=== PATIENT | male | born 1985 | race Caucasian/White ===

== ENCOUNTER 2016-10-03 12:06 | Emergency (ER) | payer OTHER ==
[2016-10-03 12:11] VITALS: BP 137/90; PULSE 102; RESP 18; TEMP 97.8; O2SAT 98
[2016-10-03] MEDS ORDERED: cefTRIAXone (Rocephin) 250 mg Inj IM STA (12:40)
--- NOTE | 2016-10-03 12:40 | C.PDOC ---
History Of Present Illness 31 yr old male presents to the ER for evaluation of new onset of rash, burning and itchy sensation to the penile and scrotal area for the past 2 days. Patient denies fever, vomiting, abdominal pain, diarrhea, penile discharge, swelling, weakness or numbness. Time Seen by Provider: 10/03/16 12:22 Chief Complaint (Nursing): Abnormal Skin Integrity History Per: Patient History/Exam Limitations: no limitations Onset/Duration Of Symptoms: Sudden Onset (For 2 days. ) Past Medical History Reviewed: Historical Data, Nursing Documentation, Vital Signs Vital Signs: Last Vital Signs Temp 97.8 F 10/03/16 12:11 Pulse 102 H 10/03/16 12:11 Resp 18 10/03/16 12:11 BP 137/90 10/03/16 12:11 Pulse Ox 98 10/03/16 12:40 Family History: States: No Known Family Hx - Social History Hx Tobacco Use: No Hx Alcohol Use: No Hx Substance Use: No - Immunization History Hx Tetanus Toxoid Vaccination: No Hx Influenza Vaccination: No Hx Pneumococcal Vaccination: No Review Of Systems Except As Marked, All Systems Reviewed And Found Negative. Constitutional: Negative for: Fever Gastrointestinal: Negative for: Vomiting, Abdominal Pain, Diarrhea Genitourinary: Positive for: Rash, Other (Rash, burning and itchy sensation to the penile and scrotal area. ). Negative for: Penile Discharge Neurological: Negative for: Weakness, Numbness Physical Exam - Physical Exam Appears: Well, Non-toxic, No Acute Distress Skin: Warm, Dry, No Rash Head: Atraumatic, Normacephalic Oral Mucosa: Moist Chest: Symmetrical, No Tenderness Gastrointestinal/Abdominal: Normal Exam, Soft, No Tenderness, No Guarding, No Rebound Male Genital: No Testicular Swelling, Other (Rash consistent with herpes. ) Extremity: Normal ROM, No Swelling Neurological/Psych: Oriented x3, Normal Speech, Normal Motor ED Course And Treatment O2 Sat by Pulse Oximetry: 98 Medical Decision Making Medical Decision Making: PLAN: * Rocephin IM Disposition Counseled Patient/Family Regarding: Diagnosis, Need For Followup, Rx Given - Disposition Referrals: [facility] [Outside] [facility] [Outside] Disposition: HOME/ ROUTINE Disposition Time: 12:38 Condition: GOOD Prescriptions: Naproxen 500 mg PO BID #30 tab Acetaminophen/Codeine [Tylenol/Codeine 300 MG/30 MG] 2 tab PO Q6H #20 tab Valacyclovir HCl [Valtrex] 1,000 mg PO BID #20 tablet Azithromycin [Zithromax] 2 tab PO ONCE #2 tab Instructions: Genital Herpes Simplex (ED) - Clinical Impression Clinical Impression: Genital herpes in men - Scribe Statement The provider has reviewed the documentation as recorded by the Thomas Reinoso Provider Attestation: All medical record entries made by the Thomas were at my direction and personally dictated by me. I have reviewed the chart and agree that the record accurately reflects my personal performance of the history, physical exam, medical decision making, and the department course for this patient. I have also personally directed, reviewed, and agree with the discharge instructions and disposition.
== END 2016-10-03 13:09 | disposition home or self-care (01) ==
LOC: C.ER 12:06
DX: A60.01 Herpesviral infection of penis (principal)
CPT/HCPCS: 96372; 99283; J0696

== ENCOUNTER 2016-12-25 08:31 | Inpatient (IN) | payer OTHER ==
[2016-12-25] MEDS ORDERED: Sodium Chloride 0.9% 1,000 ML IV ONE ×2 (08:54→10:50)
[2016-12-25] MEDS ORDERED: Sodium Chloride 0.9% 1,000 ML ONE ×2 (09:02→10:55)
[2016-12-25 09:06] LABS: BASO # 0.1 K/uL (0.0-0.2); BASO % 0.7 % (0.0-2.0); EOS % 0.3 % (0.0-4.0); HEMATOCRIT 45.9 % (35.0-51.0); LYMPH # 1.1 K/uL (1.0-4.3); LYMPH % 9.6 % (20.0-40.0); MEAN CELL VOLUME 84.7 fL (80.0-94.0); MEAN CORPUSCULAR HEMOGLOBIN 27.6 pg (27.0-31.0); MEAN CORPUSCULAR HGB CONC 32.6 g/dL (33.0-37.0); MEAN PLATELET VOLUME 8.8 fL (7.2-11.7); MONO # 0.7 K/uL (0.0-0.8); MONO % 5.7 % (0.0-10.0); NRBC % 0.1 % (0.0-2.0); PLATELET COUNT 225 K/uL (130-400); RED CELL DISTRIBUTION WIDTH 14.6 % (11.5-14.5); WHITE BLOOD COUNT 11.5 K/uL (4.8-10.8)
[2016-12-25 09:22] LABS: RBC URINE 1 /hpf (0-3); URINE BILIRUBIN NEGATIVE (NEGATIVE); URINE BLOOD NEGATIVE (NEGATIVE); URINE COLOR Yellow (YELLOW); URINE GLUCOSE (UA) NORMAL (Normal); URINE HYALINE CAST 0-2 /lpf (0-2); URINE KETONE NEGATIVE (NEGATIVE); URINE LEUKOCYTE ESTERASE NEG Leu/uL (Negative); URINE PROTEIN 1+ mg/dL (NEGATIVE); URINE UROBILINOGEN NORMAL mg/dL (0.2-1.0); WBC URINE 1 /hpf (0-5)
[2016-12-25 09:22] LABS: CHLORIDE 100 mmol/L (98-107); POTASSIUM 3.9 mmol/L (3.6-5.2); SODIUM 137 mmol/L (132-148)
[2016-12-25 09:24] LABS: ALB/GLOB RATIO 1.2 (1.0-2.1); ALKALINE PHOSPHATASE 74 U/L (38-126); AST/SGOT 38 U/L (17-59); BILIRUBIN,TOTAL 1.6 mg/dL (0.2-1.3); BLOOD UREA NITROGEN 11 mg/dL (9-20); CARBON DIOXIDE 22 mmol/L (22-30); GFR AFRICAN-AMERICAN > 60
[2016-12-25 09:25] LABS: ALT/SGPT 40 U/L (21-72); CALCIUM 9.7 mg/dl (8.6-10.4); GLUCOSE,RANDOM 115 mg/dL (75-110)
[2016-12-25 09:49] LABS: EOSINOPHIL 1 % (0-4); NEUTROPHIL 83 % (50-75); TOTAL CELLS COUNTED 100
[2016-12-25 09:50] LABS: LARGE PLATELETS PRESENT
--- NOTE | 2016-12-25 10:23 | C.PDOC ---
History Of Present Illness 31-year-old male, presents to the emergency department with complaints of abdominal pain. Patient states he has been experiencing diffuse abdominal pain that started this morning. Associated symptoms include nausea and non-bloody/non -bilious vomiting. Patient denies fevers or chills. Time Seen by Provider: 12/25/16 08:37 Chief Complaint (Nursing): Abdominal Pain History Per: Patient History/Exam Limitations: no limitations Onset/Duration Of Symptoms: Hrs Current Symptoms Are (Timing): Still Present Severity: Moderate Location Of Pain/Discomfort: Diffuse Past Medical History Reviewed: Historical Data, Nursing Documentation, Vital Signs Vital Signs: Last Vital Signs Temp 97.7 F 12/25/16 10:59 Pulse 63 12/25/16 13:09 Resp 18 12/25/16 13:09 BP 115/61 12/25/16 13:09 Pulse Ox 97 12/25/16 13:32 Family History: States: No Known Family Hx - Social History Hx Tobacco Use: No Hx Alcohol Use: No Hx Substance Use: No - Immunization History Hx Tetanus Toxoid Vaccination: (unk) Hx Influenza Vaccination: No Hx Pneumococcal Vaccination: (unk) Review Of Systems Except As Marked, All Systems Reviewed And Found Negative. Constitutional: Negative for: Fever, Chills Cardiovascular: Negative for: Chest Pain Respiratory: Negative for: Cough, Shortness of Breath Gastrointestinal: Positive for: Nausea, Vomiting, Abdominal Pain Neurological: Negative for: Weakness, Numbness, Headache, Dizziness Physical Exam - Physical Exam Appears: Non-toxic, No Acute Distress Skin: Warm, Dry, No Rash Oral Mucosa: Moist Lips: Normal Appearing Neck: Normal ROM Chest: Symmetrical Cardiovascular: Rhythm Regular, No Murmur Respiratory: Normal Breath Sounds, No Accessory Muscle Use Gastrointestinal/Abdominal: Soft, Tenderness (diffuse), No Guarding, No Rebound Extremity: Normal ROM Neurological/Psych: Oriented x3, Normal Speech ED Course And Treatment - Laboratory Results Result Diagrams: 12/25/16 09:01 12/25/16 09:01 Lab Interpretation: No Acute Changes O2 Sat by Pulse Oximetry: 97 Pulse Ox Interpretation: Normal - CT Scan/US No standard instances Other Rad Studies (CT/US): Read By Radiologist, Radiology Report Reviewed CT/US Interpretation: FINDINGS: LOWER THORAX: Unremarkable. LIVER: Unremarkable. No gross lesion or ductal dilatation. GALLBLADDER AND BILE DUCTS : Unremarkable. PANCREAS: Unremarkable. No gross lesion or ductal dilatation. SPLEEN: Unremarkable. ADRENALS: Unremarkable. No mass. KIDNEYS AND URETERS: Unremarkable. No hydronephrosis. No solid mass. VASCULATURE: Unremarkable. No aortic aneurysm. BOWEL: Dilated small bowel loops are identified, likely distal jejunum/ proximal ileum. There is transition point noted in the right hemipelvis (series 3, image 129 through 133. This is very similar to the small-bowel obstruction and transition point demonstrated on prior CT examination of 05/03/2015. Proximal small bowel and stomach are not dilated. There is complete collapse of the colon. There is no fecalization of small bowel content. There is no mural thickening. No other abnormal bowel loops are identified. Findings are consistent with early mechanical small bowel obstruction. Followup is advised. APPENDIX: Unremarkable. Normal appendix. PERITONEUM: Unremarkable. No free fluid. No free air. LYMPH NODES: Unremarkable. No enlarged lymph nodes. BLADDER: Decompressed. REPRODUCTIVE : Normal prostate. BONES: No acute fracture. OTHER FINDINGS: None. IMPRESSION: Findings consistent with early mechanical small bowel obstruction with point of transition identified in the pelvis. Follow-up advised. No other significant abnormality. Progress Note: Zofran, Toradol and IVFs ordered. Case discussed and patient evaluated by surgical pathologist who request admission to Dr Hannah Reassessment Condition: Improved - Physician Consult Information Physician Contacted: Damian Hannah Outcome Of Conversation: admit Disposition Discussed With .: Damian Hannah Doctor Will See Patient In The: Hospital - Disposition Disposition: HOSPITALIZED Disposition Time: 13:40 Condition: STABLE - POA Present On Arrival: None - Clinical Impression Clinical Impression: Vomiting, Nausea, Abdominal pain, Small bowel obstruction - PA / HEAD BONE GRINDER / Resident Statement MD/DO has reviewed & agrees with the documentation as recorded. - Scribe Statement The provider has reviewed the documentation as recorded by the Scribe (Miguel Parson) All medical record entries made by the Scribe were at my direction and personally dictated by me. I have reviewed the chart and agree that the record accurately reflects my personal performance of the history, physical exam, medical decision making, and the department course for this patient. I have also personally directed, reviewed, and agree with the discharge instructions and disposition. Decision To Admit - Pt Status Changed To: Hospital Disposition Of: Inpatient - Admit Certification Admit to Inpatient:: After my assessment, the patient will require hospitalization for at least two midnights. This is because of the severity of symptoms shown, intensity of services needed, and/or the medical risk in this patient being treated as an outpatient. - InPatient: Physician Admission Certification:: SBO - . Bed Request Type: Regular Admitting Physician: Damian Hannah Patient Diagnosis: Vomiting, Nausea, Abdominal pain, Small bowel obstruction
--- NOTE | 2016-12-25 10:41 | CT ---
PROCEDURE: CT Abdomen and Pelvis without intravenous contrast HISTORY: Pain COMPARISON: 05/03/2015 TECHNIQUE: Without contrast.. Contrast Dose: 0 Radiation dose: Total exam DLP = 259.53 mGy-cm. This CT exam was performed using one or more of the following dose reduction techniques: Automated exposure control, adjustment of the mA and/or kV according to patient size, and/or use of iterative reconstruction technique. FINDINGS: LOWER THORAX: Unremarkable. LIVER: Unremarkable. No gross lesion or ductal dilatation. GALLBLADDER AND BILE DUCTS: Unremarkable. PANCREAS: Unremarkable. No gross lesion or ductal dilatation. SPLEEN: Unremarkable. ADRENALS: Unremarkable. No mass. KIDNEYS AND URETERS: Unremarkable. No hydronephrosis. No solid mass. VASCULATURE: Unremarkable. No aortic aneurysm. BOWEL: Dilated small bowel loops are identified, likely distal jejunum/ proximal ileum. There is transition point noted in the right hemipelvis (series 3, image 129 through 133. This is very similar to the small-bowel obstruction and transition point demonstrated on prior CT examination of 05/03/2015. Proximal small bowel and stomach are not dilated. There is complete collapse of the colon. There is no fecalization of small bowel content. There is no mural thickening. No other abnormal bowel loops are identified. Findings are consistent with early mechanical small bowel obstruction. Followup is advised. APPENDIX: Unremarkable. Normal appendix. PERITONEUM: Unremarkable. No free fluid. No free air. LYMPH NODES: Unremarkable. No enlarged lymph nodes. BLADDER: Decompressed REPRODUCTIVE: Normal prostate BONES: No acute fracture. OTHER FINDINGS: None. IMPRESSION: Findings consistent with early mechanical small bowel obstruction with point of transition identified in the pelvis. Follow-up advised. No other significant abnormality.
--- NOTE | 2016-12-25 13:30 | CP.PCM.HP ---
<Eren Núñez - Last Filed: 12/25/16 13:38> History of Present Illness - History of Present Illness History of Present Illness: Surgery: Dr. Hannah CC: abd pain HPI: 31M w. hx of prior SBO in September, w. conservative tx, presents to ED w. acute onset abd pain. Pain began at 6AM and was diffuse and constant. Pain was accompanied by nausea and 2 epsiodes of vomiting, NBNB. Pt states that he had BM this morning that was normal, but since BM has not had any flatus. After arriving to ED, his pain completely resolved after having toradol. He is currently resting comfortably in bed w. no complaints. He states that he is hungry and would like to eat. CT done in ED showed signs of mechanical SBO. PMH: SBO PSH: none Meds: none NKDA Social: No ETOH/tobacco/drugs Fhx: non-contributory Present on Admission - Present on Admission Any Indicators Present on Admission: No Review of Systems - Review of Systems All systems: reviewed and no additional remarkable complaints except (HPI) Past Patient History - Infectious Disease Hx of Infectious Diseases: None - Past Social History Smoking Status: Never Smoked - PSYCHIATRIC Hx Substance Use: No - SURGICAL HISTORY Hx Surgeries: No - ANESTHESIA Hx Anesthesia: No Meds Allergies/Adverse Reactions: Allergies Allergy/AdvReac Type Severity Reaction Status Date / Time No Known Allergies Allergy Verified 12/25/16 08:44 Physical Exam - Constitutional Appears: Non-toxic, No Acute Distress - Head Exam Head Exam: ATRAUMATIC, NORMOCEPHALIC - Eye Exam Eye Exam: EOMI - ENT Exam ENT Exam: Mucous Membranes Moist, Normal External Ear Exam - Neck Exam Neck exam: Positive for: Full Rom - Respiratory Exam Respiratory Exam: NORMAL BREATHING PATTERN. absent: Accessory Muscle Use, Respiratory Distress - GI/Abdominal Exam GI & Abdominal Exam: Soft. absent: Distended, Firm, Guarding, Rebound, Rigid, Tenderness - Extremities Exam Extremities exam: Negative for: calf tenderness, pedal edema - Neurological Exam Neurological exam: Alert, Oriented x3 Results - Vital Signs Recent Vital Signs: Last Vital Signs Temp 97.7 F 12/25/16 10:59 Pulse 63 12/25/16 13:09 Resp 18 12/25/16 13:09 BP 115/61 12/25/16 13:09 Pulse Ox 98 12/25/16 13:09 - Labs Result Diagrams: 12/25/16 09:01 12/25/16 09:01 Labs: Laboratory Results - last 24 hr 12/25/16 12/25/16 12/25/16 09:01 09:01 09:12 WBC 11.5 H RBC 5.42 Hgb 14.9 Hct 45.9 MCV 84.7 D MCH 27.6 MCHC 32.6 L RDW 14.6 H Plt Count 225 MPV 8.8 Neut % (Auto) 83.7 H Lymph % (Auto) 9.6 L [place] % (Auto) 5.7 Eos % (Auto) 0.3 Baso % (Auto) 0.7 Neut # 9.6 H Lymph # 1.1 [place] # 0.7 Eos # 0.0 Baso # 0.1 Neutrophils % (Manual) 83 H Band Neutrophils % 2 Lymphocytes % (Manual) 9 L Monocytes % (Manual) 5 Eosinophils % (Manual) 1 Platelet Estimate Normal Large Platelets Present Anisocytosis (manual) Slight Sodium 137 Potassium 3.9 Chloride 100 Carbon Dioxide 22 Anion Gap 18 BUN 11 Creatinine 0.9 Est GFR ( Amer) > 60 Est GFR (Non-Af Amer) > 60 Random Glucose 115 H Calcium 9.7 Total Bilirubin 1.6 H AST 38 ALT 40 Alkaline Phosphatase 74 Total Protein 8.0 Albumin 4.4 Globulin 3.6 Albumin/Globulin Ratio 1.2 Lipase 73 Urine Color Yellow Urine Clarity Clear Urine pH 6.0 Ur Specific [place] 1.020 Urine Protein 1+ H Urine Glucose (UA) Normal Urine Ketones Negative Urine Blood Negative Urine Nitrate Negative Urine Bilirubin Negative Urine Urobilinogen Normal Ur Leukocyte Esterase Neg Urine WBC (Auto) 1 Urine RBC (Auto) 1 Ur Squamous Epith Cells < 1 Hyaline Casts 0-2 Assessment & Plan - Assessment and Plan (Free Text) Assessment: 31M w. SBO, symptoms currently asymptomatic -CLD -Monitor bowel fxn and ADAT -serial abd exams -d/w attending [facility] PGY2 <Damian Hannah - Last Filed: 12/27/16 15:40> Results - Vital Signs Recent Vital Signs: Last Vital Signs Temp 97.9 F 12/26/16 07:29 Pulse 60 12/26/16 07:29 Resp 20 12/26/16 07:29 BP 113/71 12/26/16 07:29 Pulse Ox 97 12/26/16 07:29 - Labs Result Diagrams: 12/26/16 09:03 12/26/16 09:03 Attending/Attestation - Attestation I have personally seen and examined this patient.: Yes I have fully participated in the care of the patient.: Yes I have reviewed all pertinent clinical information: Yes Notes (Text): 12/27/16 15:39 Pt was seen and examined at bedside on 12/25/16 Agree with above note and assessment Pt with PSBO due to possible enteritis or adhesions C.w NG to LIS NPO CT scan and Labs reviewed Plan d.w pt in detail. Risk and benefit explained in detail.
[2016-12-25] MEDS: Sodium Chloride 0.9% 1,000 ML IV SCH ×2 (14:09→19:21)
[2016-12-25 17:30] VITALS: RESP 20
[2016-12-26] MEDS: Sodium Chloride 0.9% 1,000 ML IV SCH ×2 (00:07→06:18)
--- NOTE | 2016-12-26 07:09 | CP.PCM.PN ---
<Eren Núñez - Last Filed: 12/26/16 07:06> Subjective - Date & Time of Evaluation Date of Evaluation: 12/26/16 Time of Evaluation: 07:08 - Subjective Subjective: Surgery: Dr. Hannah Pt seen and examined. Resting comfortably in bed. Symptoms completely resolved. No pain. Tolerating CLD. No N/V. Passing flatus. No BM yet. Objective - Vital Signs/Intake and Output Vital Signs (last 24 hours): Temp Pulse Resp BP Pulse Ox 98.2 F 81 20 121/70 98 12/26/16 00:00 12/26/16 00:00 12/26/16 00:00 12/26/16 00:00 12/26/16 00:00 Intake and Output: 12/26/16 12/26/16 06:59 18:59 Intake Total 950 Balance 950 - Medications Medications: Current Medications Sodium Chloride (Sodium Chloride 0.9%) 1,000 mls @ 100 mls/hr IV .Q10H ANDREE Last Admin: 12/26/16 06:18 Dose: 100 mls/hr Ketorolac Tromethamine (Toradol) 30 mg IVP Q6 PRN PRN Reason: Pain, moderate (4-7) Last Admin: 12/26/16 00:03 Dose: 30 mg Ondansetron HCl (Zofran Inj) 4 mg IVP Q4 PRN PRN Reason: Nausea/Vomiting - Constitutional Appears: Non-toxic, No Acute Distress - Head Exam Head Exam: ATRAUMATIC, NORMOCEPHALIC - Eye Exam Eye Exam: EOMI - ENT Exam ENT Exam: Mucous Membranes Moist - Neck Exam Neck Exam: Full ROM - Respiratory Exam Respiratory Exam: NORMAL BREATHING PATTERN. absent: Respiratory Distress - GI/Abdominal Exam GI & Abdominal Exam: Soft. absent: Distended, Firm, Guarding, Rigid, Tenderness , Rebound - Extremities Exam Extremities Exam: absent: Calf Tenderness, Pedal Edema Assessment and Plan - Assessment and Plan (Free Text) Assessment: 31M w. SBO, resolving -AXR ordered, f/u results -diet advanced to regular, if tolerated w. plan for D/C -d/w attending [facility] PGY2 <Damian Hannah - Last Filed: 12/27/16 15:42> Objective - Vital Signs/Intake and Output Vital Signs (last 24 hours): Temp Pulse Resp BP Pulse Ox 97.9 F 60 20 113/71 97 12/26/16 07:29 12/26/16 07:29 12/26/16 07:29 12/26/16 07:29 12/26/16 07:29 - Labs Labs: 12/26/16 09:03 12/26/16 09:03 Attending/Attestation - Attestation I have personally seen and examined this patient.: Yes I have fully participated in the care of the patient.: Yes I have reviewed all pertinent clinical information, including history, physical exam and plan: Yes Notes (Text): 12/27/16 15:42 Pt was seen and examined at bedside on 12/26/16 Agree with above note and assessment Pt with improved PSBO Soft diet Pt can be DC home F.U as out pt. Plan d.w pt in detail. Risk and benefit explained in detail.
[2016-12-26 07:33] VITALS: BP 113/71; PULSE 60; TEMP 97.9; O2SAT 97
[2016-12-26 09:22] LABS: HEMATOCRIT 41.2 % (35.0-51.0); MEAN CELL VOLUME 86.1 fL (80.0-94.0); MEAN CORPUSCULAR HEMOGLOBIN 28.2 pg (27.0-31.0); MEAN CORPUSCULAR HGB CONC 32.8 g/dL (33.0-37.0); MEAN PLATELET VOLUME 9.3 fL (7.2-11.7); RED CELL DISTRIBUTION WIDTH 14.6 % (11.5-14.5); WHITE BLOOD COUNT 7.9 K/uL (4.8-10.8)
[2016-12-26 09:54] LABS: CHLORIDE 105 mmol/L (98-107); POTASSIUM 3.9 mmol/L (3.6-5.2); SODIUM 138 mmol/L (132-148)
[2016-12-26 09:56] LABS: GFR AFRICAN-AMERICAN > 60
[2016-12-26 09:57] LABS: BLOOD UREA NITROGEN 7 mg/dL (9-20); CALCIUM 8.7 mg/dl (8.6-10.4); CARBON DIOXIDE 23 mmol/L (22-30); GLUCOSE,RANDOM 77 mg/dL (75-110)
--- NOTE | 2016-12-26 11:54 | RAD ---
HISTORY: sbo COMPARISON: No prior. FINDINGS: BOWEL: Normal. No obstruction. No free air. BONES: Normal. OTHER FINDINGS: None. IMPRESSION: No active disease.
--- NOTE | 2016-12-26 11:55 | CP.PCM.DIS ---
Provider - Provider Date of Admission: 12/25/16 13:24 Attending physician: Damian Hannah MD Time Spent in preparation of Discharge (in minutes): 30 Hospital Course - Lab Results Lab Results: Most Recent Lab Values WBC 7.9 K/uL (4.8-10.8) 12/26/16 09:03 RBC 4.79 Mil/uL (4.40-5.90) 12/26/16 09:03 Hgb 13.5 g/dL (12.0-18.0) 12/26/16 09:03 Hct 41.2 % (35.0-51.0) 12/26/16 09:03 MCV 86.1 fL (80.0-94.0) 12/26/16 09:03 MCH 28.2 pg (27.0-31.0) 12/26/16 09:03 MCHC 32.8 g/dL (33.0-37.0) L 12/26/16 09:03 RDW 14.6 % (11.5-14.5) H 12/26/16 09:03 Plt Count 184 K/uL (130-400) 12/26/16 09:03 MPV 9.3 fL (7.2-11.7) 12/26/16 09:03 Neut % (Auto) 83.7 % (50.0-75.0) H 12/25/16 09:01 Lymph % (Auto) 9.6 % (20.0-40.0) L 12/25/16 09:01 [place] % (Auto) 5.7 % (0.0-10.0) 12/25/16 09:01 Eos % (Auto) 0.3 % (0.0-4.0) 12/25/16 09:01 Baso % (Auto) 0.7 % (0.0-2.0) 12/25/16 09:01 Neut # 9.6 K/uL (1.8-7.0) H 12/25/16 09:01 Lymph # 1.1 K/uL (1.0-4.3) 12/25/16 09:01 [place] # 0.7 K/uL (0.0-0.8) 12/25/16 09:01 Eos # 0.0 K/uL (0.0-0.7) 12/25/16 09:01 Baso # 0.1 K/uL (0.0-0.2) 12/25/16 09:01 Neutrophils % (Manual) 83 % (50-75) H 12/25/16 09:01 Band Neutrophils % 2 % (0-2) 12/25/16 09:01 Lymphocytes % (Manual) 9 % (20-40) L 12/25/16 09:01 Monocytes % (Manual) 5 % (0-10) 12/25/16 09:01 Eosinophils % (Manual) 1 % (0-4) 12/25/16 09:01 Platelet Estimate Normal (NORMAL) 12/25/16 09:01 Large Platelets Present 12/25/16 09:01 Anisocytosis (manual) Slight 12/25/16 09:01 Sodium 138 mmol/L (132-148) 12/26/16 09:03 Potassium 3.9 mmol/L (3.6-5.2) 12/26/16 09:03 Chloride 105 mmol/L (98-107) 12/26/16 09:03 Carbon Dioxide 23 mmol/L (22-30) 12/26/16 09:03 Anion Gap 13 (10-20) 12/26/16 09:03 BUN 7 mg/dL (9-20) L 12/26/16 09:03 Creatinine 0.8 MG/DL (0.8-1.5) 12/26/16 09:03 Est GFR ( Amer) > 60 12/26/16 09:03 Est GFR (Non-Af Amer) > 60 12/26/16 09:03 Random Glucose 77 mg/dL (75-110) 12/26/16 09:03 Calcium 8.7 mg/dl (8.6-10.4) 12/26/16 09:03 Total Bilirubin 1.6 mg/dL (0.2-1.3) H 12/25/16 09:01 AST 38 U/L (17-59) 12/25/16 09:01 ALT 40 U/L (21-72) 12/25/16 09:01 Alkaline Phosphatase 74 U/L (38-126) 12/25/16 09:01 Total Protein 8.0 g/dL (6.3-8.3) 12/25/16 09:01 Albumin 4.4 g/dL (3.5-5.0) 12/25/16 09:01 Globulin 3.6 gm/dL (2.2-3.9) 12/25/16 09:01 Albumin/Globulin Ratio 1.2 (1.0-2.1) 12/25/16 09:01 Lipase 73 U/L (23-300) 12/25/16 09:01 Urine Color Yellow (YELLOW) 12/25/16 09:12 Urine Clarity Clear (Clear) 12/25/16 09:12 Urine pH 6.0 (5.0-8.0) 12/25/16 09:12 Ur Specific [place] 1.020 (1.003-1.030) 12/25/16 09:12 Urine Protein 1+ mg/dL (NEGATIVE) H 12/25/16 09:12 Urine Glucose (UA) Normal mg/dL (Normal) 12/25/16 09:12 Urine Ketones Negative mg/dL (NEGATIVE) 12/25/16 09:12 Urine Blood Negative (NEGATIVE) 12/25/16 09:12 Urine Nitrate Negative (NEGATIVE) 12/25/16 09:12 Urine Bilirubin Negative (NEGATIVE) 12/25/16 09:12 Urine Urobilinogen Normal mg/dL (0.2-1.0) 12/25/16 09:12 Ur Leukocyte Esterase Neg [place]/uL (Negative) 12/25/16 09:12 Urine WBC (Auto) 1 /hpf (0-5) 12/25/16 09:12 Urine RBC (Auto) 1 /hpf (0-3) 12/25/16 09:12 Ur Squamous Epith Cells < 1 /hpf (0-5) 12/25/16 09:12 Hyaline Casts 0-2 /lpf (0-2) 12/25/16 09:12 - Hospital Course Hospital Course: 31M presented with mechanical bowel obstruction as seen on CT. Symptoms resolved very quickly after one day. He is passing gas, having bowel movements, and denies pain N/V. ready to go home. Discharge Exam - Head Exam Head Exam: ATRAUMATIC, NORMOCEPHALIC - Eye Exam Eye Exam: EOMI, PERRL - Respiratory Exam Respiratory Exam: Clear to PA & Lateral, NORMAL BREATHING PATTERN - Cardiovascular Exam Cardiovascular Exam: REGULAR RHYTHM, +S1, +S2 - GI/Abdominal Exam GI & Abdominal Exam: Soft. absent: Distended, Firm, Guarding, Rebound, Rigid, Tenderness - Neurological Exam Neurological exam: Alert, Oriented x3 - Psychiatric Exam Psychiatric exam: Normal Affect, Normal Mood - Skin Skin Exam: Dry, Intact, Normal Color, Warm Discharge Plan - Follow Up Plan Condition: STABLE Disposition: HOME/ ROUTINE Instructions: Bowel Obstruction (GEN) Additional Instructions: Follow up wShakeel Hannah in 1 week. If symptoms worsen or concerns arise, return to ED. Take over the counter Tylenol/Motrin for pain if need be. Referrals: Damian Hannah MD [Staff Provider] -
== END 2016-12-26 13:05 | disposition home or self-care (01) | DRG 181 ==
LOC: C.ER 08:31 → C.9E 13:24 → C.3T 14:01
PROVIDERS: ADMIT Surgery Surgical Critical Care; ATTEND Surgery Surgical Critical Care
DX: K56.60 Unspecified intestinal obstruction (principal)

== ENCOUNTER 2017-01-04 02:25 | Inpatient (IN) | payer OTHER ==
--- NOTE | 2017-01-04 03:11 | C.PDOC ---
History Of Present Illness pt presents with increasing abdominal pain, nausea and vomiting. Has had similar episode about 10 days ago. Has a early sbo. Pain started again yeterday. Not tolerating po Time Seen by Provider: 01/04/17 03:11 Chief Complaint (Nursing): Abdominal Pain History Per: Patient History/Exam Limitations: no limitations Onset/Duration Of Symptoms: Days Current Symptoms Are (Timing): Still Present Context: Other Severity: Moderate Pain Scale Rating Of: 5 Location Of Pain/Discomfort: Diffuse Radiation Of Pain To:: None Quality Of Discomfort: Dull, Cramping, Stabbing Associated Symptoms: Nausea, Vomiting. denies: Fever, Chills Exacerbating Factors: None Alleviating Factors: None Last Bowel Movement: Yesterday Recent travel outside of the [place]: No Additional History Per: Family Past Medical History Reviewed: Historical Data, Nursing Documentation, Vital Signs Vital Signs: Last Vital Signs Temp 98.3 F 01/04/17 02:41 Pulse 104 H 01/04/17 02:41 Resp 20 01/04/17 02:41 BP 144/83 01/04/17 02:41 Pulse Ox 100 01/04/17 03:42 - Medical History PMH: Denies: Chronic Kidney Disease Family History: States: No Known Family Hx - Social History Hx Tobacco Use: No Hx Alcohol Use: No Hx Substance Use: No - Immunization History Hx Tetanus Toxoid Vaccination: (unk) Hx Influenza Vaccination: No Hx Pneumococcal Vaccination: (unk) Review Of Systems Constitutional: Negative for: Fever, Chills Eyes: Negative for: Redness ENT: Negative for: Throat Pain Cardiovascular: Negative for: Chest Pain, Palpitations Respiratory: Negative for: Shortness of Breath Gastrointestinal: Positive for: Nausea, Vomiting, Abdominal Pain. Negative for : Constipation Genitourinary: Negative for: Hematuria Musculoskeletal: Negative for: Back Pain Skin: Negative for: Rash, Lesions, Jaundice Neurological: Negative for: Weakness Psych: Negative for: Anxiety Physical Exam - Physical Exam Appears: Non-toxic Skin: Warm, Dry Head: Normacephalic Eye(s): bilateral: Normal Inspection Oral Mucosa: Dry Neck: Trachea Midline, Supple Chest: Symmetrical Cardiovascular: Rhythm Regular Respiratory: No Rales, No Rhonchi, No Wheezing Gastrointestinal/Abdominal: Soft, Tenderness (diffuse), Distention, No Guarding , No Rebound Back: No CVA Tenderness Extremity: Normal ROM Extremity: Bilateral: Atraumatic, Normal Color And Temperature, Normal ROM Neurological/Psych: Oriented x3, Normal Speech, Normal Cognition Gait: Steady ED Course And Treatment - Laboratory Results Result Diagrams: 01/04/17 03:14 01/04/17 03:14 O2 Sat by Pulse Oximetry: 100 Pulse Ox Interpretation: Normal - Radiology CXR: Interpreted by Me, Viewed By Me CXR Interpretation: No: Infiltrates, Fracture, Pnemothorax - Other Rad obstr X-Ray: Interpreted by Me, Viewed By Me Interpretation: sbo, no free air Progress Note: blood work, ivf, toradol zofran Disposition Discussed With DrShakeel: Laure Felipe Comment: accepted the pt on her service and took over the care at 5AM Doctor Will See Patient In The: ED Counseled Patient/Family Regarding: Studies Performed, Diagnosis - Disposition Disposition: HOSPITALIZED Disposition Time: 03:11 Condition: FAIR - POA Present On Arrival: None - Clinical Impression Clinical Impression: Abdominal pain, Small bowel obstruction
[2017-01-04] MEDS ORDERED: Sodium Chloride 0.9% 1,000 ML IV ONE (03:14)
[2017-01-04 03:17] LABS: BASO # 0.1 K/uL (0.0-0.2); BASO % 0.6 % (0.0-2.0); EOS % 0.3 % (0.0-4.0); LYMPH # 2.7 K/uL (1.0-4.3); LYMPH % 19.9 % (20.0-40.0); MEAN CELL VOLUME 84.6 fL (80.0-94.0); MEAN CORPUSCULAR HEMOGLOBIN 27.6 pg (27.0-31.0); MEAN CORPUSCULAR HGB CONC 32.6 g/dL (33.0-37.0); MEAN PLATELET VOLUME 8.8 fL (7.2-11.7); MONO # 0.8 K/uL (0.0-0.8); MONO % 5.9 % (0.0-10.0); NEUT % 73.3 % (50.0-75.0); RBC 5.42 Mil/uL (4.40-5.90); RED CELL DISTRIBUTION WIDTH 14.1 % (11.5-14.5); WHITE BLOOD COUNT 13.7 K/uL (4.8-10.8)
[2017-01-04 03:27] LABS: ALBUMIN 4.5 g/dL (3.5-5.0)
[2017-01-04 03:29] LABS: AST/SGOT 40 U/L (17-59); GFR AFRICAN-AMERICAN > 60; GFR NON-AFRICAN AMERICAN > 60
[2017-01-04 03:30] LABS: ALB/GLOB RATIO 1.2 (1.0-2.1); ALT/SGPT 66 U/L (21-72); BLOOD UREA NITROGEN 11 mg/dL (9-20); CALCIUM 9.8 mg/dl (8.6-10.4); LIPASE 70 U/L (23-300)
[2017-01-04] MEDS: Sodium Chloride 0.9% 1,000 ML IV SCH ×3 (05:12→23:11)
[2017-01-04 06:56] LABS: URINE BILIRUBIN NEGATIVE (NEGATIVE); URINE BLOOD NEGATIVE (NEGATIVE); URINE CLARITY Clear (Clear); URINE COLOR Yellow (YELLOW); URINE GLUCOSE (UA) NORMAL (Normal); URINE LEUKOCYTE ESTERASE NEG Leu/uL (Negative); URINE NITRATE NEGATIVE (NEGATIVE); URINE PROTEIN NEGATIVE (NEGATIVE); URINE UROBILINOGEN NORMAL mg/dL (0.2-1.0)
--- NOTE | 2017-01-04 07:00 | CP.PCM.HP ---
History of Present Illness - History of Present Illness History of Present Illness: General Surgery H&P for Dr. 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 Patient admitted with a recent episode of similar symptoms diagnosed with SBO on CT scan 12/25. The SBO resolved without surgical intervention at that time. Patient states that his current pain is most localized vera-umbilically and that it is a constant stabbing pain. Patient states that he had multiple episodes of NB/NB emesis overnight, with the most recent being in the ER. Patient denies any diarrhea. He states that his last BM was yesterday AM and denies hematochezia/melena but states that the stool was hard and he had to strain to pass it. Patient denies fevers, chills, dysuria, hematuria, cough, hemoptysis or any other symptoms. Patient states that now that his pain is under better control he does not have nausea or vomiting. afebrile, VSS Abd obstructive series: distended SB with air fluid-levels WBC: 13.7 Present on Admission - Present on Admission Any Indicators Present on Admission: No Review of Systems - Review of Systems All systems: reviewed and no additional remarkable complaints except (as per HPI ) - Constitutional Constitutional: absent: Chills, Fever - Cardiovascular Cardiovascular: absent: Chest Pain, Chest Pain at Rest, Chest Pain with Activity - Respiratory Respiratory: absent: Cough, Dyspnea, Hemoptysis - Gastrointestinal Gastrointestinal: Abdominal Pain (diffuse, most localizaed vera-umbilically), Nausea, Vomiting. absent: Constipation, Diarrhea, Dysphagia, Heartburn, Hematemesis, Hematochezia, Loose Stools, Melena - Genitourinary Genitourinary: absent: Dysuria, Flank Pain, Hematuria - Musculoskeletal Musculoskeletal: absent: Back Pain, Numbness, Tingling - Neurological Neurological: absent: Focal Weakness, Tingling, Weakness Past Patient History - Infectious Disease Hx of Infectious Diseases: None - Past Medical History & Family History Past Medical History?: Yes - Past Social History Smoking Status: Never Smoked Alcohol: Occasional Drugs: Denies - CARDIAC Hx Cardiac Disorders: No - PULMONARY Hx Respiratory Disorders: No Hx Tuberculosis: No (denies full disease, but 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) - NEUROLOGICAL Hx Neurological Disorder: No - HEENT Hx HEENT Problems: No - RENAL Hx Chronic Kidney Disease: No - ENDOCRINE/METABOLIC Hx Endocrine Disorders: No - HEMATOLOGICAL/ONCOLOGICAL Hx Blood Disorders: No - INTEGUMENTARY Hx Dermatological Problems: No - MUSCULOSKELETAL/RHEUMATOLOGICAL Hx Musculoskeletal Disorders: No Hx Falls: Yes - GASTROINTESTINAL Hx Gastrointestinal Disorders: Yes Other/Comment: abdominal pain - GENITOURINARY/GYNECOLOGICAL Hx Genitourinary Disorders: No - PSYCHIATRIC Hx Substance Use: No - SURGICAL HISTORY Hx Surgeries: No - ANESTHESIA Hx Anesthesia: No Hx Anesthesia Reactions: No Hx Malignant Hyperthermia: No Meds Allergies/Adverse Reactions: Allergies Allergy/AdvReac Type Severity Reaction Status Date / Time No Known Allergies Allergy Verified 12/25/16 08:44 Physical Exam - Constitutional Appears: Well, Non-toxic, In Acute Distress - Head Exam Head Exam: ATRAUMATIC, NORMOCEPHALIC - Eye Exam Eye Exam: Normal appearance. absent: Conjunctival injection, Scleral icterus - ENT Exam ENT Exam: Mucous Membranes Moist, Normal Oropharynx - Respiratory Exam Respiratory Exam: NORMAL BREATHING PATTERN. absent: Accessory Muscle Use, Respiratory Distress - Cardiovascular Exam Cardiovascular Exam: RRR - GI/Abdominal Exam GI & Abdominal Exam: Distended (mild), Soft, Tenderness (diffuse tenderness to moderate palpation) - Extremities Exam Extremities exam: Positive for: pedal pulses present. Negative for: calf tenderness, pedal edema, tenderness - Neurological Exam Neurological exam: Alert, Oriented x3 - Psychiatric Exam Psychiatric exam: Normal Affect, Normal Mood - Skin Skin Exam: Dry, Intact, Normal Color, Warm Results - Vital Signs Recent Vital Signs: Last Vital Signs Temp 97.9 F 01/04/17 06:32 Pulse 70 01/04/17 06:32 Resp 16 01/04/17 06:32 BP 109/66 01/04/17 06:32 Pulse Ox 99 01/04/17 06:32 - Labs Result Diagrams: 01/04/17 03:14 01/04/17 03:14 Assessment & Plan - Assessment and Plan (Free Text) Assessment: 31M with recurrent SBO Plan: -no emergent surgical intervention indicated -Admit to med/surg -NPO -IVF -IV abx -repeat labs -insert NGT if repeated nausea/vomiting -serial exams -analgesia, anti-emetics, GI ppx, SCD Discussed with Dr. Felipe, further recs per her Yareli Moser, GPY2
[2017-01-04] MEDS: metroNIDAZOLE IV 500 mg/100 ml 500 MG/100 ML BAG IVPB SCH ×3 (07:45→21:33)
[2017-01-04] MEDS: Ciprofloxacin 400mg/200ml D5W 400 MG/200 ML BAG IVPB SCH ×2 (09:12→21:34)
--- NOTE | 2017-01-04 09:35 | RAD ---
PROCEDURE: Radiographs of the chest and abdomen (obstructive series) HISTORY: abd pain COMPARISON: No prior. TECHNIQUE: AP radiograph of the chest, with upright and supine radiographs of the abdomen. FINDINGS: CHEST: Heart size normal. Lung estrada clear without focal consolidation or effusion. ABDOMEN AND PELVIS: No gross free air seen under the diaphragmatic surfaces. Few distended air-filled loops of small bowel in the left thumb abdomen again noted. Findings may represent sequela of partial or intermittent small bowel obstruction. Stool and air seen throughout the cecum and ascending colon as well as in the rectosigmoid. . IMPRESSION: No acute cardiopulmonary disease. Findings suggest partial or intermittent small bowel obstruction. Stool and air seen throughout the cecum and at ascending colon as well as rectus sigmoid.
[2017-01-05] MEDS: Sodium Chloride 0.9% 1,000 ML IV SCH (01:19)
[2017-01-05 02:18] VITALS: PULSE 67
[2017-01-05] MEDS: metroNIDAZOLE IV 500 mg/100 ml 500 MG/100 ML BAG IVPB SCH ×2 (06:17→13:42)
[2017-01-05] MEDS: Ciprofloxacin 400mg/200ml D5W 400 MG/200 ML BAG IVPB SCH (09:59)
[2017-01-05 16:20] VITALS: BP 124/68; RESP 18; TEMP 97.7; O2SAT 97
--- NOTE | 2017-01-05 16:33 | CP.PCM.DIS ---
Provider - Provider Date of Admission: 01/04/17 05:07 Attending physician: Laure Felipe MD Primary care physician: None Consults: None Time Spent in preparation of Discharge (in minutes): 60 Hospital Course - Lab Results Lab Results: Most Recent Lab Values WBC 13.7 K/uL (4.8-10.8) H D 01/04/17 03:14 RBC 5.42 Mil/uL (4.40-5.90) 01/04/17 03:14 Hgb 15.0 g/dL (12.0-18.0) 01/04/17 03:14 Hct 45.8 % (35.0-51.0) 01/04/17 03:14 MCV 84.6 fL (80.0-94.0) 01/04/17 03:14 MCH 27.6 pg (27.0-31.0) 01/04/17 03:14 MCHC 32.6 g/dL (33.0-37.0) L 01/04/17 03:14 RDW 14.1 % (11.5-14.5) 01/04/17 03:14 Plt Count 295 K/uL (130-400) D 01/04/17 03:14 MPV 8.8 fL (7.2-11.7) 01/04/17 03:14 Neut % (Auto) 73.3 % (50.0-75.0) 01/04/17 03:14 Lymph % (Auto) 19.9 % (20.0-40.0) L 01/04/17 03:14 Rich % (Auto) 5.9 % (0.0-10.0) 01/04/17 03:14 Eos % (Auto) 0.3 % (0.0-4.0) 01/04/17 03:14 Baso % (Auto) 0.6 % (0.0-2.0) 01/04/17 03:14 Neut # 10.0 K/uL (1.8-7.0) H 01/04/17 03:14 Lymph # 2.7 K/uL (1.0-4.3) 01/04/17 03:14 Rich # 0.8 K/uL (0.0-0.8) 01/04/17 03:14 Eos # 0.0 K/uL (0.0-0.7) 01/04/17 03:14 Baso # 0.1 K/uL (0.0-0.2) 01/04/17 03:14 Sodium 139 mmol/L (132-148) 01/04/17 03:14 Potassium 3.6 mmol/L (3.6-5.2) 01/04/17 03:14 Chloride 102 mmol/L (98-107) 01/04/17 03:14 Carbon Dioxide 21 mmol/L (22-30) L 01/04/17 03:14 Anion Gap 20 (10-20) 01/04/17 03:14 BUN 11 mg/dL (9-20) 01/04/17 03:14 Creatinine 1.0 MG/DL (0.8-1.5) 01/04/17 03:14 Est GFR ( Amer) > 60 01/04/17 03:14 Est GFR (Non-Af Amer) > 60 01/04/17 03:14 Random Glucose 158 mg/dL (75-110) H 01/04/17 03:14 Calcium 9.8 mg/dl (8.6-10.4) 01/04/17 03:14 Total Bilirubin 1.0 mg/dL (0.2-1.3) 01/04/17 03:14 AST 40 U/L (17-59) 01/04/17 03:14 ALT 66 U/L (21-72) 01/04/17 03:14 Alkaline Phosphatase 84 U/L (38-126) 01/04/17 03:14 Total Protein 8.3 g/dL (6.3-8.3) 01/04/17 03:14 Albumin 4.5 g/dL (3.5-5.0) 01/04/17 03:14 Globulin 3.8 gm/dL (2.2-3.9) 01/04/17 03:14 Albumin/Globulin Ratio 1.2 (1.0-2.1) 01/04/17 03:14 Lipase 70 U/L (23-300) 01/04/17 03:14 Urine Color Yellow (YELLOW) 01/04/17 06:38 Urine Clarity Clear (Clear) 01/04/17 06:38 Urine pH 7.0 (5.0-8.0) 01/04/17 06:38 Ur Specific [place] 1.021 (1.003-1.030) 01/04/17 06:38 Urine Protein Negative mg/dL (NEGATIVE) 01/04/17 06:38 Urine Glucose (UA) Normal mg/dL (Normal) 01/04/17 06:38 Urine Ketones Trace mg/dL (NEGATIVE) 01/04/17 06:38 Urine Blood Negative (NEGATIVE) 01/04/17 06:38 Urine Nitrate Negative (NEGATIVE) 01/04/17 06:38 Urine Bilirubin Negative (NEGATIVE) 01/04/17 06:38 Urine Urobilinogen Normal mg/dL (0.2-1.0) 01/04/17 06:38 Ur Leukocyte Esterase Neg Federico/uL (Negative) 01/04/17 06:38 Urine WBC (Auto) 1 /hpf (0-5) 01/04/17 06:38 Urine RBC (Auto) 1 /hpf (0-3) 01/04/17 06:38 - Hospital Course Hospital Course: 31M admitted for recurrent SBO, made NPO, serial abdominal exams performed. SBO resolved with conservative mgmt, diet advanced. Pt stabilized, ready for discharge home. - Date & Time of H&P Date of H&P: 01/04/17 Time of H&P: 06:56 Discharge Exam - Head Exam Head Exam: ATRAUMATIC, NORMAL INSPECTION, NORMOCEPHALIC - Eye Exam Eye Exam: EOMI, Normal appearance - ENT Exam ENT Exam: Mucous Membranes Moist, Normal Exam - Neck Exam Neck exam: Full Rom, Normal Inspection - Respiratory Exam Respiratory Exam: Clear to PA & Lateral, NORMAL BREATHING PATTERN, UNREMARKABLE - Cardiovascular Exam Cardiovascular Exam: REGULAR RHYTHM, +S1, +S2 - GI/Abdominal Exam GI & Abdominal Exam: Normal Bowel Sounds, Soft, Unremarkable. absent: Distended , Firm, Guarding, Rebound, Rigid, Tenderness - Extremities Exam Extremities exam: full ROM - Neurological Exam Neurological exam: Alert, CN II-XII Intact, Oriented x3 - Psychiatric Exam Psychiatric exam: Normal Affect, Normal Mood - Skin Skin Exam: Dry, Intact, Normal Color, Warm Discharge Plan - Discharge Medications Prescriptions: Ondansetron [Zofran] 4 mg PO Q8H PRN #21 tab PRN Reason: Nausea/Vomiting - Follow Up Plan Condition: FAIR Disposition: HOME/ ROUTINE Instructions: Acute Abdominal Pain (DC), Bowel Obstruction (DC), Full Liquid Diet (DC), Acute Abdominal Pain (GEN) Additional Instructions: Follow up with Dr. Felipe in 2 weeks at her office See Dr. Roberts, the GI doctor Follow up with your primary doctor within 1 week Take medications as prescribed when discharged--take the zofran sparingly to avoid getting dependent Return to the ER if return of symptoms, fever >100.4, nausea and vomiting that is not responsive to medication Referrals: Laure Felipe MD [Staff Provider] - Irvin Roberts MD [Staff Provider] -
== END 2017-01-05 18:10 | disposition home or self-care (01) | DRG 390 ==
LOC: C.ER 02:25 → C.9E 05:07 → C.6T 06:20
PROVIDERS: ADMIT Specialist; ATTEND Specialist
DX: K56.60 Unspecified intestinal obstruction (principal)

== ENCOUNTER 2017-01-15 21:24 | Emergency (ER) | payer OTHER ==
[2017-01-15 21:30] VITALS: BP 134/84; PULSE 100; RESP 17; TEMP 97.7; O2SAT 98
--- NOTE | 2017-01-15 21:50 | C.PDOC ---
History Of Present Illness 32 year old male presents to the ED with complaints of an itchy rash to bilateral arms and chest beginning one hour prior to arrival. Patient notes he recently began taking cipro, flagyl, and protonix for diverticulitis infection. He denies any difficulty breathing or swallowing. Time Seen by Provider: 01/15/17 21:37 Chief Complaint (Nursing): Allergic Reaction History Per: Patient History/Exam Limitations: no limitations Onset/Duration Of Symptoms: Hrs Current Symptoms Are (Timing): Still Present Possible Cause: Medication (new medications ) Associated Symptoms: Skin Rash. denies: Trouble Swallowing, Dizziness Recent travel outside of the [place]: No Past Medical History Reviewed: Historical Data, Nursing Documentation, Vital Signs Vital Signs: Last Vital Signs Temp 97.7 F 01/15/17 21:27 Pulse 100 H 01/15/17 21:27 Resp 17 01/15/17 21:27 BP 134/84 01/15/17 21:27 Pulse Ox 98 01/15/17 21:57 - Medical History PMH: No Chronic Diseases Family History: States: Unknown Family Hx - Social History Hx Tobacco Use: No Hx Alcohol Use: No Hx Substance Use: No - Immunization History Hx Tetanus Toxoid Vaccination: (unk) Hx Influenza Vaccination: No Hx Pneumococcal Vaccination: (unk) Review Of Systems Constitutional: Negative for: Fever, Chills ENT: Negative for: Throat Swelling Respiratory: Negative for: Shortness of Breath Skin: Positive for: Rash (itchy rash to arms and chest ) Physical Exam - Physical Exam Appears: Non-toxic, No Acute Distress Skin: Warm, Dry, Other (maculopapular rash to neck, chest, and arms. No facial involvement ) Head: Atraumatic, Normacephalic Eye(s): bilateral: Normal Inspection, EOMI Oral Mucosa: Moist Tongue: Normal Appearing, No Swelling Lips: Normal Appearing, No Swelling Throat: Normal, No Erythema, No Exudate Neck: Supple Chest: Symmetrical, No Deformity Cardiovascular: Rhythm Regular Respiratory: Normal Breath Sounds, No Rales, No Rhonchi, No Wheezing Extremity: Normal ROM Neurological/Psych: Oriented x3, Normal Speech ED Course And Treatment O2 Sat by Pulse Oximetry: 98 (room air ) Pulse Ox Interpretation: Normal Medical Decision Making Medical Decision Making: PAtient with allergic rash likely related to recent antibiotic use. Treat with Benadryl PO. Patient reports improvement pruritus. Patient has no shortness of breath or intraoral swelling. Advise to stop medication and take Benadryl Disposition Counseled Patient/Family Regarding: Need For Followup, Rx Given - Disposition Referrals: [facility] [Outside] Disposition: HOME/ ROUTINE Disposition Time: 21:56 Condition: STABLE Additional Instructions: Take Benadryl every 6 hours for itching or rash. May apply cortisone cream to affected area, available over the counter Follow up with your primary doctor for further evaluation and consult regarding medications taken Prescriptions: DiphenhydrAMINE [Benadryl] 25 mg PO Q6 #30 cap Instructions: Urticaria (GEN) - POA Present On Arrival: None - Clinical Impression Clinical Impression: Urticaria - Scribe Statement The provider has reviewed the documentation as recorded by the Scribcaesar Marie All medical record entries made by the Francoisibcaesar were at my direction and personally dictated by me. I have reviewed the chart and agree that the record accurately reflects my personal performance of the history, physical exam, medical decision making, and the department course for this patient. I have also personally directed, reviewed, and agree with the discharge instructions and disposition.
== END 2017-01-15 22:07 | disposition home or self-care (01) ==
LOC: C.ER 21:24
DX: L50.0 Allergic urticaria (principal)

== ENCOUNTER 2017-01-16 11:28 | Emergency (ER) | payer OTHER ==
[2017-01-16 11:37] VITALS: TEMP 97.9; O2SAT 98
--- NOTE | 2017-01-16 12:04 | C.PDOC ---
History Of Present Illness 32 year old male w/PMHx of recurrent SBO, presents to the ED with complaints of a diffuse pruritic rash that developed gradually after the patient started an antibiotic treatment 3-4 days ago. Patient states a past medical history of small bowel obstruction with a recent partial SBO on 01/04/2017 when was seen here in ED, admitted and was successfully treated with conservative management. Pt notes, F/u outpt with PMD and received Rx: cipro, protonix, flagyl 4 days ago. Patient was seen yesterday in the ED and given Benadryl prescription with no improvement in rash. Otherwise, pt denies fever, chills, sore throat or throat tightness, drooling, wheezing, SOB, CP, abdominal pain, nausea, or vomiting or any other active complaints. Pt took Benadryl PO 25 mg this AM. Ambulate to ED for evaluation, not in any apparent distress. Time Seen by Provider: 01/16/17 11:32 Chief Complaint (Nursing): Abnormal Skin Integrity History Per: Patient History/Exam Limitations: no limitations Onset/Duration Of Symptoms: Days (beginning yesterday ), Gradual Current Symptoms Are (Timing): Still Present Recent travel outside of the [place]: No Additional History Per: Prior Records (patient seen in ED yesterday ) Past Medical History Reviewed: Historical Data, Nursing Documentation, Vital Signs Vital Signs: Last Vital Signs Temp 97.9 F 01/16/17 11:32 Pulse 88 01/16/17 11:32 Resp 18 01/16/17 11:32 BP 106/70 01/16/17 11:32 Pulse Ox 98 01/16/17 12:18 - Medical History Other PMH: recurrent SBO Family History: States: No Known Family Hx - Social History Hx Tobacco Use: No Hx Alcohol Use: No Hx Substance Use: No - Immunization History Hx Tetanus Toxoid Vaccination: (unk) Hx Influenza Vaccination: No Hx Pneumococcal Vaccination: (unk) Review Of Systems Constitutional: Negative for: Fever, Chills ENT: Negative for: Mouth Swelling, Throat Pain, Throat Swelling Cardiovascular: Negative for: Chest Pain Respiratory: Negative for: Cough, Shortness of Breath, Wheezing Gastrointestinal: Negative for: Nausea, Vomiting, Abdominal Pain Skin: Positive for: Rash (pruritic rash ) Neurological: Negative for: Headache, Dizziness Physical Exam - Physical Exam Appears: Well, Non-toxic, No Acute Distress Skin: Warm, Dry, Rash (diffuse urticaria to trunk and scattered to B/L UEs and LEs. No cellulitis.) Eye(s): bilateral: PERRL Nose: No Flaring Oral Mucosa: Moist Tongue: Normal Appearing, No Swelling Lips: Normal Appearing, No Swelling Throat: Normal, No Erythema, No Exudate, No Drooling, Other (Uvula midline , no edema.) Neck: Supple Cardiovascular: Rhythm Regular Respiratory: No Decreased Breath Sounds, No Accessory Muscle Use, No Stridor, No Wheezing Gastrointestinal/Abdominal: Soft, No Tenderness, No Distention, No Guarding Extremity: No Pedal Edema, No Swelling Neurological/Psych: Oriented x3, Normal Speech ED Course And Treatment O2 Sat by Pulse Oximetry: 98 (room air ) Pulse Ox Interpretation: Normal Progress Note: On re-evaluation, pt is afebrile, hemodynamicaly stable. Non- toxic. PulseOx 98% RA. ENT: no acute findings. Uvula midline, no edema. Lungs : CTA B/L, BS equal B/L. ABd: benign. Skin: exam c/w diffuse urticaria. Pt received steroid, pepcid in ED. Benadryl was taken at home this AM. Pt advised to stop all new medication- Cipro, Flagyl immediately due to likely allergic reaction. Pt advised and ref. to f/u with PMD and Surgery in 2-3 days for re- eavl. return to ED if any worsening or new changes. Pt understand and stable for discharge now. 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 RETURN TO ED IF ANY WORSENING OR NEW CHANGES. Prescriptions: Famotidine [Pepcid] 20 mg PO BID #10 tab Prednisone [Deltasone] 60 mg PO DAILY #9 tablet Instructions: Urticaria (ED) - Clinical Impression Clinical Impression: Urticaria - Scribe Statement The provider has reviewed the documentation as recorded by the Thomas Eatonatt All medical record entries made by the Francoisibcaesar were at my direction and personally dictated by me. I have reviewed the chart and agree that the record accurately reflects my personal performance of the history, physical exam, medical decision making, and the department course for this patient. I have also personally directed, reviewed, and agree with the discharge instructions and disposition.
[2017-01-16 12:42] VITALS: BP 118/72; PULSE 69; RESP 20
== END 2017-01-16 12:42 | disposition home or self-care (01) ==
LOC: C.ER 11:28
DX: L50.9 Urticaria, unspecified (principal)
CPT/HCPCS: 96372; 99284; J2930